=== PATIENT | female | born 1965 | race Caucasian/White ===

== ENCOUNTER 2025-02-13 15:06 | Observation (INO) ==
--- NOTE | 2025-02-13 16:18 | DR.URINEF ---
HPI Time Seen Time Seen by Provider: 02/13/25 16:18 PCP Primary Care Physician: Izabela Benjamin HPI Comment HPI Comment: Patient states she has had some abdominal and bladder discomfort over the last few months and has been following up with urology. She does have of bladder cancer and has had issues for approximately 2 years. Patient states she has had several times where she had some urinary retention. Patient states she has had a difficult time voiding since last night. Complaint Chief Complaint:: Pt. c/o severe lower abdominal pain, dysruria and bladder spasms since Monday night. Pt. states she hasn't voided at all since last night. Pt. has a history of bladder CA and bladder issues for approximately 2 years and under the care of Dr. Aguirre in [place]. Pt. is rating her pain severe, especially with ambulation COVID-19 Coronavirus risk:travel/contact w/high risk person: No Has patient experienced Coronavirus symptoms: No Source History Provided: Patient Mode of Arrival Mode of Arrival: Ambulatory Timing Onset of Chief Complaint: 02/11/25 PMH PMH Past Medical History: Yes Past Medical History: Migraines, Hypertension, Hypothyroidism and Cancer Past Medical History Comment: kidney CA Past Surgical History: Yes Surgical History: Cholecystectomy and Ortho Surgery Family History History of Family Medical Conditions: Yes Family Medical History: Coronary Artery Disease and Hypertension Social History Does patient currently use any type of tobacco product: No Have you used tobacco products in the last 12 months: No Type of Tobacco Use: Vape Alcohol Use: Occasionally Do you use any recreational Drugs:: No Lives With: Family Lives Where: Home Travel Risk Coronavirus risk:travel/contact w/high risk person: No Has patient experienced Coronavirus symptoms: No Infectious screening In the last 2 months have you had wt loss of >10#?: NO Have you had fever, night sweats or hemotysis?: No Have you traveled outside the country in the last 6 months?: No Isolation: Standard ROS Review of Systems Constitutional: No Symptoms Reported; negative Fever Eyes: No Symptoms Reported ENTM: No Symptoms Reported Respiratoy: No Symptoms Reported Cardiovascular: No Symptoms Reported Gastrointestinal/Abdominal: See HPI Genitourinary: See HPI Neurological: No Symptoms Reported Musculoskeletal: No Symptoms Reported Integumentary: No Symptoms Reported Hematologic/Lymphatic: No Symptoms Reported Endocrine: No Symptoms Reported Psychiatric: No Symptoms Reported All Other Systems: Reviewed and Negative PE Vital Signs Vitals: Vital Signs Temperature 98.1 F Pulse Rate 100 Pulse Rate 79 Pulse Rate 113 Respiratory Rate 18 Respiratory Rate 20 Respiratory Rate 20 Blood Pressure 131/66 Blood Pressure 148/70 Blood Pressure 136/64 O2 Sat by Pulse Oximetry 98 O2 Sat by Pulse Oximetry 99 O2 Sat by Pulse Oximetry 95 General Limitations: No Limitations General Appearance: Alert and In No Apparent Distress Eyes Eye exam: Normal Appearance ENT ENT Exam: Normal Exam Neck Neck Exam: Normal Inspection Chest Chest Inspection: Normal Inspection Respiratory Respiratory Exam: Normal Lung Sounds Bilat Respiratory Exam: Bilateral: Clear to Auscultation Cardiovascular Cardiovascular Exam: Regular Rate and Normal Rhythm Abdominal Exam Abdominal Exam: Normal Inspection, Normal Bowel Sounds, Soft and Tenderness (Mild tenderness on suprapubic area); negative Distention, Guarding, Rebound, Rigidity, Organomegaly or Ascites Rectal Rectal Exam: Deferred Genitourinary External Exam: Female: Deferred : Speculum Exam (Female): Deferred : Bimanual Exam (female): Deferred Extremities Extremities Exam: Normal Inspection Back Back Exam: Normal Inspection Neurologic Neurological Exam: Alert and Oriented X3 Psychiatric Psychiatric Exam: Normal Affect and Normal Mood Skin Skin Exam: Warm, Dry, Intact and Normal Color COURSE Treatment Treatment: Patient dehydrated with acute renal failure. Discussed results of workup with patient and family. Patient improved significantly with fluids in the ER. Consultation Consultation Comments: Discussed case with Dr. Moralez and she is agreeable to admission. ROR Labs Reviewed Laboratory Results Reviewed?: Yes 02/13/25 16:13 02/13/25 20:03 Laboratory: WBC 10.4 X10^3/uL (3.6-10.0) H 02/13/25 16:13 RBC 5.02 X10^6/uL (3.5-5.4) 02/13/25 16:13 Hgb 15.4 g/dL (12.0-16.0) 02/13/25 16:13 Hct 46.0 % (36.0-47.0) 02/13/25 16:13 MCV 91.5 fL (80.0-100.0) 02/13/25 16:13 MCH 30.7 pg (27.0-34.0) 02/13/25 16:13 MCHC 33.6 g/dL (33.0-35.0) 02/13/25 16:13 RDW 13.6 % (11.6-16.5) 02/13/25 16:13 Plt Count 400 X10^3/uL (150.0-450.0) 02/13/25 16:13 MPV 7.8 fL (7.4-11.0) 02/13/25 16:13 Neut % (Auto) 77.4 % (42.0-75.0) H 02/13/25 16:13 Lymph % (Auto) 11.4 % (21.0-51.0) L 02/13/25 16:13 [place] % (Auto) 10.7 % (0.0-13.0) 02/13/25 16:13 Eos % (Auto) 0.2 % (0.9-2.9) L 02/13/25 16:13 Baso % (Auto) 0.3 % (0.2-1.0) 02/13/25 16:13 Neut # (Auto) 8.0 x10^3/uL (2.2-4.8) H 02/13/25 16:13 Lymph # (Auto) 1.2 X10^3/uL (1.3-2.9) L 02/13/25 16:13 [place] # (Auto) 1.1 x10^3/uL (0.3-0.8) H 02/13/25 16:13 Eos # (Auto) 0.0 x10^3/uL (0.0-0.2) 02/13/25 16:13 Baso # (Auto) 0.0 X10^3/uL (0.0-0.1) 02/13/25 16:13 Absolute Nucleated RBC 0.0 /100WBC 02/13/25 16:13 Sodium 134 mmol/L (136-145) L 02/13/25 20:03 Corrected Sodium TNP 02/13/25 20:03 Potassium 4.3 mmol/L (3.5-5.1) 02/13/25 20:03 Chloride 98 mmol/L (98-107) 02/13/25 20:03 Carbon Dioxide 21.8 mmol/L (21-32) 02/13/25 20:03 BUN 25 mg/dL (7-18) H 02/13/25 20:03 Creatinine 2.03 mg/dL (0.55-1.02) H 02/13/25 20:03 Est GFR (MDRD) Af Amer 32 (>60) L 02/13/25 20:03 Est GFR (MDRD) Non-Af 27 (>60) L 02/13/25 20:03 Glucose 84 mg/dL (65-99) 02/13/25 20:03 Calcium 8.4 mg/dL (8.5-10.1) L 02/13/25 20:03 Corrected Calcium TNP 02/13/25 16:13 Total Bilirubin 0.90 mg/dL (0.2-1.0) 02/13/25 16:13 AST 21 Units/L (15-37) 02/13/25 16:13 ALT 23 Units/L (12-78) 02/13/25 16:13 Alkaline Phosphatase 85 Units/L (46-116) 02/13/25 16:13 Total Protein 7.5 g/dL (6.4-8.2) 02/13/25 16:13 Albumin 4.0 g/dL (3.4-5.0) 02/13/25 16:13 Globulin 3.5 g/dL (2.5-4.5) 02/13/25 16:13 Albumin/Globulin Ratio 1.1 Ratio (1.1-2.1) 02/13/25 16:13 Specimen Type Catherized urine 02/13/25 16:38 Urine Color Yellow (YELLOW) 02/13/25 16:38 Urine Appearance Clear (CLEAR) 02/13/25 16:38 Urine pH 5.0 (5.0 - 8.0) 02/13/25 16:38 Ur Specific [place] 1.030 (1.000-1.030) 02/13/25 16:38 Urine Protein 1+ (NEGATIVE) 02/13/25 16:38 Urine Glucose (UA) Negative (NEGATIVE) 02/13/25 16:38 Urine Ketones 3+ (NEGATIVE) 02/13/25 16:38 Urine Blood 1+ (NEGATIVE) 02/13/25 16:38 Urine Nitrite Negative (NEGATIVE) 02/13/25 16:38 Urine Bilirubin 1+ (NEGATIVE) 02/13/25 16:38 Urine Urobilinogen Normal (NORMAL) 02/13/25 16:38 Ur Leukocyte Esterase Negative (NEGATIVE) 02/13/25 16:38 Urine RBC 3-5 /HPF (0-3) A 02/13/25 16:38 Urine WBC None seen /HPF (0-5) 02/13/25 16:38 Ur Squamous Epith Cells Few /HPF (NEGATIVE) 02/13/25 16:38 Calcium Oxalate Crystal Few /HPF (NEGATIVE) 02/13/25 16:38 Urine Bacteria Trace /HPF (NEGATIVE) 02/13/25 16:38 Hyaline Casts Few /LPF (NEGATIVE) 02/13/25 16:38 Ur Culture Indicated? No/not indicated 02/13/25 16:38 Urine Opiates Screen Negative (NEG=<300) 02/13/25 16:38 Urine Methadone Screen Negative (NEG=<300) 02/13/25 16:38 Ur Barbiturates Screen Negative (NEG=<200) 02/13/25 16:38 Ur Phencyclidine Scrn Negative (NEG=<25) 02/13/25 16:38 Ur Amphetamines Screen Negative (NEG=<1000) 02/13/25 16:38 U Benzodiazepines Scrn Negative (NEG=<200) 02/13/25 16:38 Urine Cocaine Screen Negative (NEG=<300) 02/13/25 16:38 U Marijuana (THC) Screen Negative (NEG=<50) 02/13/25 16:38 Other Results Comments: Name: ELKE MICHAELS : 1965 Sex: F Location: ER Order Number(s): [id number] Procedure(s):CT ABDOMEN/PELVIS W/O CON Ordering Physician: Vahe Musa Primary Care: Fernando Benjamin Service Date: 02/13/25 Service Time: 1620 EXAM: ABDOMEN/PELVIS W/O CON HISTORY: Pt. c/o severe lower abdominal pain, dysuria and bladder spasms since Monday night. Pt. states she hasn't voided at all since last night. Pt. has a history of bladder CA and bladder issues for approximately 2 years.; COMPARISON: March 01, 2023 TECHNIQUE: Non-contrasted axial CT images of the abdomen and pelvis were obtained and reformatted into coronal and sagittal planes for further evaluation. Radiation dose: 177.67 mGy-cm total DLP FINDINGS: Lung bases are clear. Status post gastric bypass. Solid visceral organs of the upper abdomen are unremarkable. Status post cholecystectomy. No intra or extrahepatic biliary dilatation. Small lower pole right renal cyst. Otherwise, unremarkable appearance of the kidneys and ureters. Atherosclerotic changes to the abdominal aorta and iliac vessels without aneurysm. Soria catheter in place with balloon insufflated in the urethra; recommend repositioning. Normal appearance of the small and large bowel. Small fat containing paraumbilical hernia without significant changes. Reproductive structures are unremarkable. No evidence of acute appendicitis. No pneumoperitoneum. Small volume ascites. No adenopathy. No acute osseous abnormality. IMPRESSION: 1. No acute intra-abdominal abnormality detected. 2. Soria catheter in place with balloon insufflated in the urethra; recommend repositioning. 3. Small volume ascites. THIS IS AN ELECTRONICALLY VERIFIED FINAL REPORT 02/13/2025 5:41 PM - Electronically signed by Manuel Holland MD Opioid Opioid Risk Tool Age (Thompson box if 16-45): No History of Preadolescent Sexual Abuse: No Total: 0 Total Score Risk Category: Low Risk Copyright: Geoff MURRIETA predicting aberrant behaviors Discharge Plan Diagnosis Discharge Problem: Acute kidney failure, Acute dehydration Discharge Plan Patient Disposition: 09 ADMITTED INPATIENT Condition: Stable Prescriptions: No Action cyclobenzaprine 10 mg tablet 10 mg PO BID meloxicam 15 mg tablet 15 mg PO QAM lisinopril 20 mg tablet 20 mg PO QDAY levothyroxine 88 mcg tablet 88 mcg PO QDAY pantoprazole 40 mg tablet,delayed release (DR/EC) 40 mg PO QDAY topiramate 100 mg tablet 100 mg PO QDAY Health Concerns: Post Hospitalization: new medications and changes needed to prevent readmission or further decline. Pt educated and given instructions on all concerns. Plan of Treatment: Continue with present treatment and follow up plan. Pt is to keep follow up appointment as instructed and take medications as ordered. Orders to Discharge Patient Discharge Orders: Transfer (Routine); Ordered 02/13/25 Ordered By: Vahe Musa Follow ups/Referrals Follow ups/Referrals: FERNANDO BENJAMIN [Primary Care Provider, MEDICAL] - 3 days Instructions Stand Alone Forms: Find Help Web Site, Post Hospital Follow Up Care Print Language: LIBERIAN
[2025-02-13 16:41] LABS: MEAN PLATELET VOLUME 7.8 fL (7.4-11.0); RED CELL DISTRIBUTION WIDTH 13.6 % (11.6-16.5)
[2025-02-13 16:53] LABS: CREATININE 2.89 mg/dL (0.55-1.02); eGFR NON BLACK RACES 18 (>60)
[2025-02-13 17:29] LABS: BLOOD/HEMOGLOBIN,URINE 1+ (NEGATIVE); LEUKOCYTE ESTERASE ,URINE NEGATIVE (NEGATIVE); NITRITES,URINE NEGATIVE (NEGATIVE)
[2025-02-13 17:30] LABS: APPEARANCE,URINE CLEAR (CLEAR)
[2025-02-13 17:34] LABS: CALCIUM OXALATE CRYSTALS,UR FEW /HPF (NEGATIVE); HYALINE CASTS, URINE FEW /LPF (NEGATIVE); SQUAMOUS EPITHELIAL CELL,UR FEW /HPF (NEGATIVE)
--- NOTE | 2025-02-13 17:44 | CT ---
EXAM: ABDOMEN/PELVIS W/O CON HISTORY: Pt. c/o severe lower abdominal pain, dysuria and bladder spasms since Monday night. Pt. states she hasn't voided at all since last night. Pt. has a history of bladder CA and bladder issues for approximately 2 years.; COMPARISON: March 01, 2023 TECHNIQUE: Non-contrasted axial CT images of the abdomen and pelvis were obtained and reformatted into coronal and sagittal planes for further evaluation. Radiation dose: 177.67 mGy-cm total DLP FINDINGS: Lung bases are clear. Status post gastric bypass. Solid visceral organs of the upper abdomen are unremarkable. Status post cholecystectomy. No intra or extrahepatic biliary dilatation. Small lower pole right renal cyst. Otherwise, unremarkable appearance of the kidneys and ureters. Atherosclerotic changes to the abdominal aorta and iliac vessels without aneurysm. Soria catheter in place with balloon insufflated in the urethra; recommend repositioning. Normal appearance of the small and large bowel. Small fat containing paraumbilical hernia without significant changes. Reproductive structures are unremarkable. No evidence of acute appendicitis. No pneumoperitoneum. Small volume ascites. No adenopathy. No acute osseous abnormality. IMPRESSION: 1. No acute intra-abdominal abnormality detected. 2. Soria catheter in place with balloon insufflated in the urethra; recommend repositioning. 3. Small volume ascites. THIS IS AN ELECTRONICALLY VERIFIED FINAL REPORT 02/13/2025 5:41 PM - Electronically signed by Manuel Holland MD
[2025-02-13] MEDS: PYRIDIUM PO ONE (19:04)
[2025-02-13] MEDS: NS 1,000 ML IV 1,000 ML IV ONE (19:04)
[2025-02-13 20:34] LABS: CREATININE 2.03 mg/dL (0.55-1.02); eGFR NON BLACK RACES 27 (>60)
[2025-02-13] MEDS ORDERED: ULTRAM PO PRN (22:05)
[2025-02-13] MEDS ORDERED: CONSULT PHARMACY - POTASSIUM & MAGNESIUM XX SCH (22:05)
[2025-02-13] MEDS ORDERED: TYLENOL 325 MG TAB PO PRN (22:05)
[2025-02-13] MEDS ORDERED: ZOFRAN INJ 4 MG VIAL IVP PRN (22:05)
[2025-02-13 22:48] VITALS: BMI 24.7
[2025-02-13] MEDS: NS 1,000 ML IV 1,000 ML IV SCH (23:10)
[2025-02-13] MEDS: FLEXERIL TAB 10 MG PO SCH (23:47)
[2025-02-14 06:13] LABS: MEAN PLATELET VOLUME 7.9 fL (7.4-11.0); RED CELL DISTRIBUTION WIDTH 13.6 % (11.6-16.5)
[2025-02-14 06:33] LABS: COR CA(FOR HYPOALB) 8.8 mg/dL (8.5-10.1); CREATININE 0.80 mg/dL (0.55-1.02); eGFR NON BLACK RACES > 60 (>60)
[2025-02-14 08:20] VITALS: RESP 19
[2025-02-14] MEDS ORDERED: FLEXERIL TAB 10 MG PO SCH (09:00)
[2025-02-14] MEDS ORDERED: PHARMACY CONSULT XX SCH (09:00)
[2025-02-14] MEDS ORDERED: ZESTRIL TAB 20 MG ONE (10:37)
[2025-02-14] MEDS: LOVENOX INJ 40 MG SYR SC SCH (10:40)
[2025-02-14] MEDS: TOPAMAX TAB 100 MG PO SCH (10:41)
[2025-02-14] MEDS: ZESTRIL TAB 20 MG PO SCH (10:41)
[2025-02-14] MEDS: K-DUR TAB 20 MEQ PO SCH (10:41)
[2025-02-14] MEDS: PROTONIX TAB 40 MG PO SCH (10:41)
[2025-02-14 12:04] VITALS: BP 160/72; PULSE 89; TEMP 98.1; O2SAT 99
[2025-02-14] MEDS: NORCO 5/325 MG TAB PO PRN (12:10)
--- NOTE | 2025-02-18 10:24 | DR.SSS ---
SHORT STAY SUMMARY Admission Date Date of Admission: 02/13/25 Discharge Date Discharge Date: 02/14/25 Admission Diagnoses Admission Diagnoses: acute dehydration acute renal failure Discharge Diagnoses Discharge Diagnoses: acute dehydration acute renal failure Chief Complaint Chief Complaint: urinary retention History of Present Illness History of Present Illness: Patient is a 59-year-old female presenting with abdominal and bladder discomfort that acutely worsened over the past day. She does have chronic bladder dysfunction and is being followed up by urology in [place]. She reports not urinating for a long time due to having difficulty and feeling some pain. She denies fevers or chills. She denies dysuria. She admits to not drinking as much fluids at home. Past Medical History Past Medical History: Migraines, Hypertension, Hypothyroidism and Cancer Past Surgical History Surgical History: Cholecystectomy, Ortho Surgery, Tonsillectomy and Weight Loss Surgery Allergies Allergies Allergy/AdvReac Type Severity Reaction Status Date / Time Sulfa (Sulfonamide Allergy Verified 02/07/25 14:07 Antibiotics) (SULFA) Medications Home Medications: Sulfa (Sulfonamide Antibiotics) (SULFA) Allergy (Verified 02/07/25 14:07) Family History Family Medical History: Coronary Artery Disease and Hypertension Social History Does patient currently use any type of tobacco product: Yes Have you used tobacco products in the last 12 months: No Type of Tobacco Use: Vape Does any household member use tobacco: No Alcohol Use: None Drug Use: None Review of Systems Constitutional: No Symptoms Reported Eyes: No Symptoms Reported ENT: No Symptoms Reported Respiratory: No Symptoms Reported Cardiovascular: No Symptoms Reported Gastrointestinal: No Symptoms Reported Genitourinary: Retention Musculoskeletal: No Symptoms Reported Skin: No Symptoms Reported Neurological: No Symptoms Reported Physical Exam Vital Signs: Last Vital Signs Temp 97.6 F 02/14/25 08:00 Pulse 80 02/14/25 08:00 Resp 19 02/14/25 08:00 BP 126/68 02/14/25 08:00 Pulse Ox 98 02/14/25 08:00 O2 Del Method Room Air 02/14/25 08:00 Oriented: Normal Eyes: Normal Ear: Normal Nose: Normal Respiratory: Clear Throughout Cardiovascular: Normal : Normal Auscultation: Bowel Sounds: Normal Palpation: Normal Tenderness: Normal Skin: Normal and Decreased [place] Musculoskeletal: Normal Psychiatric: Normal Speech Pattern: Clear Labs Labs: Laboratory Last Values WBC 5.0 X10^3/uL (3.6-10.0) 02/14/25 05:23 RBC 4.08 X10^6/uL (3.5-5.4) 02/14/25 05:23 Hgb 12.7 g/dL (12.0-16.0) D 02/14/25 05:23 Hct 36.8 % (36.0-47.0) 02/14/25 05:23 MCV 90.2 fL (80.0-100.0) 02/14/25 05:23 MCH 31.2 pg (27.0-34.0) 02/14/25 05:23 MCHC 34.6 g/dL (33.0-35.0) 02/14/25 05:23 RDW 13.6 % (11.6-16.5) 02/14/25 05:23 Plt Count 323 X10^3/uL (150.0-450.0) 02/14/25 05:23 MPV 7.9 fL (7.4-11.0) 02/14/25 05:23 Neut % (Auto) 52.0 % (42.0-75.0) 02/14/25 05:23 Lymph % (Auto) 32.3 % (21.0-51.0) 02/14/25 05:23 [place] % (Auto) 12.0 % (0.0-13.0) 02/14/25 05:23 Eos % (Auto) 2.4 % (0.9-2.9) 02/14/25 05:23 Baso % (Auto) 1.3 % (0.2-1.0) H 02/14/25 05:23 Neut # (Auto) 2.6 x10^3/uL (2.2-4.8) 02/14/25 05:23 Lymph # (Auto) 1.6 X10^3/uL (1.3-2.9) 02/14/25 05:23 [place] # (Auto) 0.6 x10^3/uL (0.3-0.8) 02/14/25 05:23 Eos # (Auto) 0.1 x10^3/uL (0.0-0.2) 02/14/25 05:23 Baso # (Auto) 0.1 X10^3/uL (0.0-0.1) 02/14/25 05:23 Absolute Nucleated RBC 0.0 /100WBC 02/14/25 05:23 Sodium 138 mmol/L (136-145) 02/14/25 05:23 Corrected Sodium TNP 02/14/25 05:23 Potassium 3.9 mmol/L (3.5-5.1) 02/14/25 05:23 Chloride 104 mmol/L (98-107) 02/14/25 05:23 Carbon Dioxide 27.2 mmol/L (21-32) 02/14/25 05:23 BUN 12 mg/dL (7-18) 02/14/25 05:23 Creatinine 0.80 mg/dL (0.55-1.02) 02/14/25 05:23 Est GFR (MDRD) Af Amer > 60 (>60) 02/14/25 05:23 Est GFR (MDRD) Non-Af > 60 (>60) 02/14/25 05:23 Glucose 83 mg/dL (65-99) 02/14/25 05:23 Calcium 8.1 mg/dL (8.5-10.1) L 02/14/25 05:23 Corrected Calcium 8.8 mg/dL (8.5-10.1) 02/14/25 05:23 Total Bilirubin 0.60 mg/dL (0.2-1.0) 02/14/25 05:23 AST 18 Units/L (15-37) 02/14/25 05:23 ALT 20 Units/L (12-78) 02/14/25 05:23 Alkaline Phosphatase 68 Units/L (46-116) 02/14/25 05:23 Total Protein 6.0 g/dL (6.4-8.2) L 02/14/25 05:23 Albumin 3.1 g/dL (3.4-5.0) L 02/14/25 05:23 Globulin 2.9 g/dL (2.5-4.5) 02/14/25 05:23 Albumin/Globulin Ratio 1.1 Ratio (1.1-2.1) 02/14/25 05:23 Specimen Type Catherized urine 02/13/25 16:38 Urine Color Yellow (YELLOW) 02/13/25 16:38 Urine Appearance Clear (CLEAR) 02/13/25 16:38 Urine pH 5.0 (5.0 - 8.0) 02/13/25 16:38 Ur Specific [place] 1.030 (1.000-1.030) 02/13/25 16:38 Urine Protein 1+ (NEGATIVE) 02/13/25 16:38 Urine Glucose (UA) Negative (NEGATIVE) 02/13/25 16:38 Urine Ketones 3+ (NEGATIVE) 02/13/25 16:38 Urine Blood 1+ (NEGATIVE) 02/13/25 16:38 Urine Nitrite Negative (NEGATIVE) 02/13/25 16:38 Urine Bilirubin 1+ (NEGATIVE) 02/13/25 16:38 Urine Urobilinogen Normal (NORMAL) 02/13/25 16:38 Ur Leukocyte Esterase Negative (NEGATIVE) 02/13/25 16:38 Urine RBC 3-5 /HPF (0-3) A 02/13/25 16:38 Urine WBC None seen /HPF (0-5) 02/13/25 16:38 Ur Squamous Epith Cells Few /HPF (NEGATIVE) 02/13/25 16:38 Calcium Oxalate Crystal Few /HPF (NEGATIVE) 02/13/25 16:38 Urine Bacteria Trace /HPF (NEGATIVE) 02/13/25 16:38 Hyaline Casts Few /LPF (NEGATIVE) 02/13/25 16:38 Ur Culture Indicated? No/not indicated 02/13/25 16:38 Urine Opiates Screen Negative (NEG=<300) 02/13/25 16:38 Urine Methadone Screen Negative (NEG=<300) 02/13/25 16:38 Ur Barbiturates Screen Negative (NEG=<200) 02/13/25 16:38 Ur Phencyclidine Scrn Negative (NEG=<25) 02/13/25 16:38 Ur Amphetamines Screen Negative (NEG=<1000) 02/13/25 16:38 U Benzodiazepines Scrn Negative (NEG=<200) 02/13/25 16:38 Urine Cocaine Screen Negative (NEG=<300) 02/13/25 16:38 U Marijuana (THC) Screen Negative (NEG=<50) 02/13/25 16:38 Assessment/Plan (1) Acute dehydration: (2) Acute kidney failure: Hospital Course Hospital Course: Patient was admitted for acute dehydration and acute renal failure. Labs/imaging: WBC 5.0, hemoglobin 12.7, platelets 323, sodium 138, potassium 3.9, creatinine 2.890.80, glucose 83, UA negative, toxicology negative, CT abdomen pelvis did not reveal any acute intra-abdominal findings. Soria was placed and patient received IV fluids normal saline at 125 mL/h. On exam patient reports feeling significantly better and symptoms improved back to baseline. Her renal function is also back to baseline. No other concerns. Patient was discharged in stable condition. Instructed to have adequate hydration and to urinate when she feels like she has to to not retain. She will follow-up with her PCP in 1 week. Recommend she also follow-up with her urologist outpatient. Discharge Medications Discharge Medications: Prescriptions: Discharge Plan Discharge Plan Patient Disposition: 01 HOME, SELF-CARE Condition: Stable Health Concerns: Post Hospitalization: new medications and changes needed to prevent readmission or further decline. Pt educated and given instructions on all concerns. Care Plan Goals: Problem: Pain/Alteration in Comfort Goal: Improve/ Resolve Pain; Achieve Pain Tolerance Instructions: Take pain medications as prescribed. Contact your primary care provider if your pain is unrelieved or worsens. Follow up with primary care provider as directed. Plan of Treatment: Continue with present treatment and follow up plan. Pt is to keep follow up appointment as instructed and take medications as ordered. Prescriptions: No Action cyclobenzaprine 10 mg tablet 10 mg PO BID meloxicam 15 mg tablet 15 mg PO QAM lisinopril 20 mg tablet 20 mg PO QDAY levothyroxine 88 mcg tablet 88 mcg PO QDAY pantoprazole 40 mg tablet,delayed release (DR/EC) 40 mg PO QDAY topiramate 100 mg tablet 100 mg PO QDAY Orders to Discharge Patient Discharge Orders: Discharge (Routine); Ordered 02/14/25 Ordered By: Khurram Coello Follow ups/Referrals Follow ups/Referrals: JESSICA BENJAMIN [Primary Care Provider, MEDICAL] - 02/21/25 9:00 am Instructions Instructions: Acute Kidney Injury, Adult, Dehydration, Adult, [id number] Stand Alone Forms: Excuse From Work or School, Find Help Web Site, Post Hospi damaris Follow Up Care Print Language: SAUDI ARABIAN
== END 2025-02-14 12:15 | disposition home or self-care (01) ==
LOC: ER 15:06 → MED/SURG 15:06
PROVIDERS: ADMIT Internal Medicine; ATTEND Internal Medicine
DX: R10.84 Generalized abdominal pain; E87.1 Hypo-osmolality and hyponatremia; E83.51 Hypocalcemia; Z79.899 Other long term (current) drug therapy; Z91.81 History of falling; Z86.69 Personal history of other diseases of the nervous system and sense organs; Y92.9 Unspecified place or not applicable; E03.8 Other specified hypothyroidism; I10 Essential (primary) hypertension; C67.9 Malignant neoplasm of bladder, unspecified; R94.4 Abnormal results of kidney function studies; E86.0 Dehydration; R30.0 Dysuria; N17.8 Other acute kidney failure; N32.89 Other specified disorders of bladder; S01.112A Laceration without foreign body of left eyelid and periocular area, initial encounter